=== PATIENT | female | born 1955 | race Caucasian/White ===

== ENCOUNTER → 2022-11-07 15:07 | Outpatient (BNVA) | payer MEDICARE, MEDICAID, SELFPAY | PROVIDERS: PCP Physician Assistant; Visit Provider Psychiatry & Neurology Neurology | DX: R20.0 Anesthesia of skin (principal); R20.2 Paresthesia of skin; R26.9 Unspecified abnormalities of gait and mobility | CPT/HCPCS: 99202 ==

== ENCOUNTER 2022-12-18 12:00 | Outpatient (REF) | payer MEDICARE, MEDICAID, SELFPAY ==
--- NOTE | 2022-12-18 09:00 | EMG_ITS ---
Please see scanned EMG / Nerve Conduction Report. MTDD
== END 2022-12-18 12:01 | disposition home or self-care (01) ==
LOC: HO.NEURO 12:00
PROVIDERS: PCP Physician Assistant; Visit Provider Psychiatry & Neurology Neurology
DX: R20.0 Anesthesia of skin (principal); R20.2 Paresthesia of skin
CPT/HCPCS: 95885; 95911

== ENCOUNTER 2023-02-12 13:51 | Outpatient (AMB) | payer MEDICARE, MEDICAID, SELFPAY ==
[2023-02-12 13:53] VITALS: BP 126/78; PULSE 86; O2SAT 94; BMI 20.1
--- NOTE | 2023-02-12 13:53 | MHC.OFFVIS ---
Intake Vital Signs 02/12/23 13:53 Height 5 ft 7 in Weight 128 lb 4 oz BMI 20.1 BP 126/78 Blood Pressure Location Lt brachial Position Sitting Pulse 86 Pulse Source Pulse Oximeter Pulse Oximetry (%) 94 Oxygen Delivery Method Room Air Intake Visit Reasons: 3m follow up neuropathy-Confirmed Intake Note: Pt presents as a 3 month f/u for neuropathy. 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 Pt reports that she started vitamin B12 supplement. Pt states that her neuropathy, numbness and tingling of feet and hands has improved a little bit, but not a lot. She started cortisone injection for lumbar stenosis and it helps her stand straight and walks better. She gets legs spasm, randomly. 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 Normal EMG of right L4-S1 innervated muscles. [facility] Medical History Alcohol abuse Gait abnormality Heroin addiction Low back pain Lumbar spondylosis Myalgia Numbness and tingling of both legs Shingles Spinal stenosis Family History Father Afib Thyroid condition Brother Cancer Social History Alcohol intake: former Patient Tobacco Use Status: Never used Tobacco Review of Systems Const All systems reviewed & are unremarkable except as noted in HPI and below Physical Exam Vital Signs: Last Vital Signs Pulse 86 02/12/23 13:53 BP 126/78 02/12/23 13:53 Pulse Ox 94 02/12/23 13:53 Oxygen Delivery Method Room Air 02/12/23 13:53 BMI result Body Mass Index 20.1 Const General: cooperative, comfortable and no acute distress Nutritional Appearance: average body habitus Orientation/consciousness: patient oriented x3 Limitations: physical limitations HEENT Head: Yes normal to inspection and Yes normocephalic Eyes Pupils: Equal, round and reactive pupils present Neuro Other: Placido postural and action tremors Hypersthesia in placido feet legs upto hips and distal UE - numbness General: patient oriented x3, tone normal and moves all extremities Cranial nerves: Yes Facial sensation intact/muscles of mastication intact, Yes Equal, round and reactive pupils present, Yes Bilaterally intact EOM present, Yes Nystagmus not present, Yes Normal facial strength present, Yes Midline tongue present and Yes Symmetric palate elevation present Cognition (Neuro): normal cognition Gait exam (Neuro): Other gait observations present (difficulty with tandem, mild off balance) Motor exam (neuro): 5/5 motor strength present throughout and Normal motor muscle tone present throughout Deep tendon reflexes (DTR's): Right triceps reflex intensity grade: 2+, Left triceps reflex intensity grade: 2+, Rt Biceps (C5, C6): 2+, Left biceps reflex intensity grade: 2+, Right brachioradialis reflex intensity grade: 2+, Left brachioradialis reflex intensity grade: 2+, Right patellar reflex intensity grade: 2+, Left patellar reflex intensity grade: 2+, Right ankle reflex intensity grade: 0 and Left ankle reflex intensity grade: 0 Coordination: [id number] test normal Psych Affect: Anxious affect present Assessment & Plan Assessment & Plan (1) Numbness and tingling of both legs: Code(s): R20.0 - Anesthesia of skin; R20.2 - Paresthesia of skin (2) Gait abnormality: Code(s): R26.9 - Unspecified abnormalities of gait and mobility (3) Axonal neuropathy: Code(s): G6. - Other specified polyneuropathies (4) Spinal stenosis: Code(s): M48.00 - Spinal stenosis, site unspecified Plan Will check labs to see any reversible causes of neuropathy. Advised patient to continue follow up with [facility] for lumbar stenosis and cortisone injection. Continue home physical therapy. Start magnesium 400 mg qHS for muslce spasm. Orders: Orders Vitamin B12 and Folate 02/12/23 - Other specified polyneuropathies Comprehensive Met. Panel 02/12/23 - Other specified polyneuropathies TSH reflex Free T4 02/12/23 - Other specified polyneuropathies Complete Blood Count Auto Diff 02/12/23 - Other specified polyneuropathies Erythrocyte Sedimentation Rate 06/28/23 G62.89 - Other specified polyneuropathies TANG Reflex Titer and Pattern 02/12/23 G6.89 - Other specified polyneuropathies Medications: New magnesium oxide 200 mg PO DAILY 30 tabs 1RF 30 days Coding Level of Care Code Est Pt Level 4 (55147) Diagnoses Numbness and tingling of both legs R20.0; R20.2 Gait abnormality R26.9 Axonal neuropathy G62.89 Spinal stenosis M48.00
== END 2023-02-12 14:26 | disposition home or self-care (01) ==
LOC: HO.HSMS 13:51
PROVIDERS: PCP Physician Assistant; Visit Provider Nurse Practitioner Family
DX: R20.0 Anesthesia of skin (principal); R20.2 Paresthesia of skin; R26.9 Unspecified abnormalities of gait and mobility; G62.89 Other specified polyneuropathies; M48.00 Spinal stenosis, site unspecified
CPT/HCPCS: 99214

== ENCOUNTER → 2023-02-12 13:51 | Outpatient (BNVA) | payer MEDICARE, MEDICAID, SELFPAY | PROVIDERS: PCP Physician Assistant; Visit Provider Nurse Practitioner Family | DX: R20.0 Anesthesia of skin (principal); R20.2 Paresthesia of skin; R26.9 Unspecified abnormalities of gait and mobility; G62.89 Other specified polyneuropathies; M48.00 Spinal stenosis, site unspecified | CPT/HCPCS: 99212 ==

== ENCOUNTER 2023-03-13 10:30 | Outpatient (REF) | payer MEDICARE, MEDICAID, SELFPAY ==
[2023-03-13 10:49] LABS: MANUAL DIFF FLAG NO
[2023-03-13 10:59] LABS: Basophils Absolute Auto 0.1 X10*3/uL (0.0-0.2); Basophils Percent Auto 1.8 % (0-2); Eosinophils Absolute Auto 0.3 X10*3/uL (0.0-0.4); Eosinophils Percent Auto 3.9 % (0-4); Hematocrit 38.3 % (37.0-47.0); Hemoglobin 12.3 g/dl (12.0-16.0); Imm Gran Abs Auto 0.02 X10*3/uL (0.00-0.03); Imm Gran Pct Auto 0.3 % (0.0-0.4); Lymphocytes Absolute Auto 2.5 X10*3/uL (1.2-4.9); Lymphocytes Percent Auto 33.5 % (20-40); Mean Corpuscular HGB Conc 32.1 g/dl (31.0-35.0); Mean Corpuscular Hemoglobin 27.7 pg (27.0-33.0); Mean Corpuscular Volume 86.3 fL (80.0-98.0); Mean Platelet Volume 10.5 fL (9.4-12.3); Monocytes Absolute Auto 0.4 X10*3/uL (0.1-1.2); Monocytes Percent Auto 5.7 % (2-11); Neutrophils Percent Auto 54.8 % (45-73); Platelet Count 206 X10*3/uL (160-400); Red Blood Count 4.44 X10*6/uL (4.20-5.50); White Blood Count 7.4 X10*3/uL (4.8-10.8)
[2023-03-13 11:35] LABS: Alanine Aminotransferase 7 U/L (0-31); Albumin Level 3.8 g/dL (3.5-5.0); Alkaline Phosphatase 76 U/L (39-117); Anion Gap 15 (12-20); Aspartate Amino Transferase 13 U/L (5-31); Bilirubin Total 0.4 mg/dL (0.0-1.0); Blood Urea Nitrogen 22 mg/dL (9-16); Calcium 9.6 mg/dL (8.4-10.2); Carbon Dioxide 27 mmol/L (22-29); Chloride 101 mmol/L (96-108); Estimated Glomerular Filt Rate > 60; Glucose Random 90 mg/dL (60-115); Potassium 4.2 mmol/L (3.3-5.1); Sodium 139 mmol/L (135-145); Total Protein 6.9 g/dL (6.5-8.0)
[2023-03-13 11:50] LABS: Erythrocyte Sedimentation Rate 13 MM/HR (0-20)
[2023-03-13 11:51] LABS: TSH reflex Free T4 1.53 uIU/mL (0.32-4.0)
[2023-03-13 11:56] LABS: Folate 3.2 ng/mL (> or = 4.0); Vitamin B12 1437 pg/mL (200-900)
[2023-03-20 14:43] LABS: Anti Nuclear Antibody Screen NEGATIVE (NEGATIVE)
== END 2023-03-13 10:31 | disposition home or self-care (01) ==
LOC: HO.LAB 10:30
PROVIDERS: Visit Provider Nurse Practitioner Family
DX: G62.89 Other specified polyneuropathies (principal); R53.83 Other fatigue
CPT/HCPCS: 36415; 80053; 82607; 82746; 84443; 85025; 85652; 86038

== ENCOUNTER 2023-05-08 12:52 | Outpatient (AMB) | payer MEDICARE, SELFPAY ==
--- NOTE | 2023-05-08 13:03 | A.OFFVIS_ITS ---
Intake Vital Signs 05/08/23 13:05 Height 5 ft 7 in Weight 129 lb BMI 20.2 BP 118/82 Blood Pressure Location Lt brachial Position Sitting Pulse 83 Pulse Source Pulse Oximeter Pulse Oximetry (%) 93 Oxygen Delivery Method Room Air Intake Visit Reasons: 2m f/u neuropathy- Confirmed Intake Note: Patient presents for 2 month neuropathy. Patient states Berenice got some question for her Allergies No Known Allergies Allergy (Verified 05/08/23 13:05) HPI HPI Comments History of Present Illness Details 68 y/o female with h/o low back pain, maurilio mbar spondylosis, spinal stenosis, h/o alcohol (quit more than 1 year) and,heroin abuse ( still uses) comes for follow up of neuropathy. Pt states that her neuropathy, numbness and tingling of feet and hands has improved a little bit, but not a lot. She also reports heel pain and try to lift her legs when she sleep. 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 She is having cortisone injection for lumbar stenosis and it helps her stand straight and walks better. The lab result was reviewed. B12 level was >1400 and folate was 3.2 [facility] History Alcohol abuse Gait abnormality Heroin addiction Low back pain Lumbar spondylosis Myalgia Numbness and tingling of both legs Shingles Spinal stenosis Family History Father Afib Thyroid condition Brother Cancer Social History Alcohol intake: former Patient Tobacco Use Status: Never used Tobacco Review of Systems Const All systems reviewed & are unremarkable except as noted in HPI and below Physical Exam Vital Signs: Last Vital Signs Pulse 83 05/08/23 13:05 BP 118/82 05/08/23 13:05 Pulse Ox 93 05/08/23 13:05 Oxygen Delivery Method Room Air 05/08/23 13:05 BMI result Body Mass Index 20.2 Const General: cooperative, comfortable and no acute distress Nutritional Appearance: average body habitus Orientation/consciousness: patient oriented x3 Limitations: physical limitations HEENT Head: Yes normal to inspection and Yes normocephalic Eyes Pupils: Equal, round and reactive pupils present Neuro Other: Heaven postural and action tremors Hypersthesia in heaven feet legs upto hips and distal UE - numbness General: patient oriented x3, tone normal and moves all extremities Cranial nerves: Yes Facial sensation intact/muscles of mastication intact, Yes Equal, round and reactive pupils present, Yes Bilaterally intact EOM present, Yes Nystagmus not present, Yes Normal facial strength present, Yes Midline tongue present and Yes Symmetric palate elevation present Cognition (Neuro): normal cognition Gait exam (Neuro): Other gait observations present (difficulty with tandem, mild off balance) Motor exam (neuro): 5/5 motor strength present throughout and Normal motor muscle tone present throughout Deep tendon reflexes (DTR's): Right triceps reflex intensity grade: 2+, Left triceps reflex intensity grade: 2+, Rt Biceps (C5, C6): 2+, Left biceps reflex intensity grade: 2+, Right brachioradialis reflex intensity grade: 2+, Left brachioradialis reflex intensity grade: 2+, Right patellar reflex intensity grade: 2+, Left patellar reflex intensity grade: 2+, Right ankle reflex intensity grade: 0 and Left ankle reflex intensity grade: 0 Coordination: [id number] test normal Psych Affect: Anxious affect present Assessment & Plan Assessment & Plan (1) Numbness and tingling of both legs: Code(s): R20.0 - Anesthesia of skin; R20.2 - Paresthesia of skin (2) Gait abnormality: Code(s): R26.9 - Unspecified abnormalities of gait and mobility (3) Axonal neuropathy: Code(s): G62.89 - Other specified polyneuropathies (4) Spinal stenosis: Code(s): M48.00 - Spinal stenosis, site unspecified Plan Advised patient to stop taking vitamin B12. Start folic acid 1 mg daily. Advised patient to continue follow up with [facility] for lumbar stenosis and cortisone injection. Continue home physical therapy. Continue take magnesium 400 mg qHS for muscle spasm. Advised patient to try heel pillow to prevent heel pressure when she sleep. Medications: New folic acid 1 mg PO DAILY 30 days 30 tabs 2RF E53.8 - Deficiency of other specified B group vitamins Coding Level of Care Code Est Pt Level 4 (15753) Diagnoses Numbness and tingling of both legs R20.0; R20.2 Gait abnormality R26.9 Axonal neuropathy G62.89 Spinal stenosis M48.00
[2023-05-08 13:05] VITALS: BP 118/82; PULSE 83; O2SAT 93; BMI 20.2
== END 2023-05-08 13:25 | disposition home or self-care (01) ==
PROVIDERS: PCP Physician Assistant; Visit Provider Nurse Practitioner Family
DX: R20.0 Anesthesia of skin (principal); R20.2 Paresthesia of skin; R26.9 Unspecified abnormalities of gait and mobility; G62.89 Other specified polyneuropathies; M48.00 Spinal stenosis, site unspecified
CPT/HCPCS: 99214

== ENCOUNTER → 2023-05-08 12:52 | Outpatient (BNVA) | payer MEDICARE, SELFPAY | PROVIDERS: PCP Physician Assistant; Visit Provider Nurse Practitioner Family | DX: R20.0 Anesthesia of skin (principal); R20.2 Paresthesia of skin; G62.89 Other specified polyneuropathies; R26.9 Unspecified abnormalities of gait and mobility; M48.00 Spinal stenosis, site unspecified | CPT/HCPCS: 99212 ==

== ENCOUNTER 2024-07-22 14:13 | Outpatient (AMB) | payer MEDICARE, SELFPAY ==
--- NOTE | 2024-07-22 14:41 | MHC.OFFVIS ---
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 Accompanied by: Self / Same As Patient Allergies No Known Allergies Allergy (Verified 07/22/24 14:44) Medication List - Last Reconciled 07/22/24 by TALA Woodard alendronate 70 mg PO QWEEK ascorbate calcium (vitamin C) 500 mg PO DAILY [Biotin 1,000 mg PO DAILY] cholecalciferol (vitamin D3) 50 mcg PO DAILY folic acid 1 mg PO DAILY 30 days magnesium oxide 800 mg PO DAILY pamidronate 30 mg IV DAILY HPI Comments Details: 69-y/o female with for Placido hand and BLE nueropathy in setting of osteoporosis, low back pain , lumbar spondylosis, spinal stenosis, h/o alcohol abuse (quit in 2020), opioid dependence (inhales 1-2 small doses of herion per day- no h/o injections) comes for evaluation of neuropathy. Patient was last seen by our former colleague, Celestine Nichols NP. She continues to have BLE tingling and decreased sensation from her waist through her feet. Very occasionally will feel a more intense tingling pain. She feels like she is walking on something hard. Always wears shoes or a good tread so she does not fall. She can be off-balance when her eyes are closed, such as showering or changing clothes. She denies weakness- states she is able to do her housework and care for her cats. Sometimes asks for help carrying her laundry basket down the stairs. She has tingling sensation in bilateral hands as well, not as bad as her legs. She is compliant with the folic acid 1 mg q.d., her last folic acid level was within normal limits. She does note that she does not eat very well overall. December 2022, BLE EMG/NCS showed bilateral moderately severe axonal sensory neuropathy. Laboratory Results from [facility] ? Latest Ref Rng & Units 04/26/2024 White Blood Cell Count 4.8 - 10.8 x10-3/uL 7.2 RBC 3.8 - 4.8 x10-6/uL 4.4 Hemoglobin 11.5 - 16.0 g/dL 12.3 Hematocrit 35 - 47 % 39.1 MCV 79 - 98 fL 89.9 MEAN CORPUSCULAR HEMOGLOBIN 27 - 32 pg 28.3 MCHC 32 - 37 g/dL 31.5(L) RED CELL DISTRIBUTION WIDTH 11 - 15 % 14.4 Platelet Count 130 - 400 x10-3/uL 304 MPV 7 - 11 fL 10.7 NRBC % AUTO <1 % 0.0 NEUTROPHILS % 63.8 LYMPHOCYTES % 25.8 MONO % % 6.2 EOSINOPHILS % 1.7 BASO % % 2.4 IMMATURE GRANULOCYTES % % 0.1 NRBC # AUTO <0.1 x10-3/uL 0.00 NEUT # 1.5 - 7.0 x10-3/uL 4.61 LYMPH # 1 - 5.0 x10-3/uL 1.86 MONO # 0.2 - 1.0 x10-3/uL 0.45 EOS # 0 - 0.5 x10-3/uL 0.12 BASO # 0 - 0.2 x10-3/uL 0.17 IMMATURE GRANULOCYTES # 0 - 0.03 x10-3/uL 0.01 GLUCOSE, PLASMA 70 - 100 mg/dL 100 Blood Urea Nitrogen 5 - 25 mg/dL 15 creatinine 0.5 - 1.1 mg/dL 0.89 GLOMERULAR FILTRATION RATE >60 71 NA (WB) 135 - 145 mEq/L 137 K 3.5 - 5.5 mmol/L 5.3 Chloride 96 - 110 mmol/L 102 CARBON DIOXIDE 21 - 32 mmol/L 32 ANION GAP 3 - 11 3 CALCIUM 8.5 - 10.5 mg/dL 9.6 PROTEIN, TOTAL 6.0 - 8.0 G/dL 7.3 Albumin 3.2 - 5.0 G/dL 4.0 Bilirubin, total 0.0 - 1.4 mg/dL 0.4 AST (SGOT) 10 - 42 U/L 17 ALT (SGPT) 10 - 60 U/L 17 Alk Phos 42 - 121 U/L 75 Cholesterol 0 - 200 mg/dL 236(H) HDL >40 mg/dL 92 TC-HDLC RATIO 0 - 4.4 mg/dL 2.6 TRIGLYCERIDES 0 - 150 mg/dL 109 LDL 0 - 100 mg/dL 123(H) IRON BINDING CAPACITY 250 - 450 ug/dL 357 IRON, TOTAL 40 - 150 ug/dL 67 % FE SATURATION 15 - 50 % 19 HbA1C <6.5 % 5.3 ESTIMATED AVERAGE GLUCOSE mg/dL 105 TSH 0.40 - 4.00 uIU/ml 1.78 VITAMIN D, 25-HYDROXY 30 - 80 ng/mL 38 MAGNESIUM 1.9 - 2.6 mg/dL 2.5 FERRITIN 8 - 252 ng/mL 109 VITAMIN B12 250 - 900 pg/mL 1073(H) RBC FOLATE 2.8 - 17.0 ng/ml > 20.0(H) Initial HPI from 11/07/[address] Gavi Antunez: She reports numbness in toes that started in 2019 and has progressed to her thighs. It is persistent and has tingling in her feet and hands. She reports dry skin. In 2012 she also had skin rash in right LE and diagnosed with shingles. she had severe pain at that time when she was drinking heavily 1 year ago she had multiple falls . The falls stopped when she stopped drinking. she has chronic back pain, neck tightness, but denies shooting pains from back or neck. she has mild off balance . she is scared of falling.Her diet is poor due to poor appetite. [facility] Medical History Gait abnormality Numbness and tingling of both legs Shingles Myalgia Alcohol abuse Heroin addiction Spinal stenosis Lumbar spondylosis Low back pain Family History Father Afib Thyroid condition Brother Cancer Social History Alcohol intake: former Patient Tobacco Use Status: Never used Tobacco Physical Exam Vital Signs: Last Vital Signs Pulse 69 07/22/24 14:43 BP 90/60 07/22/24 14:43 Pulse Ox 98 07/22/24 14:43 Oxygen Delivery Method Room Air 07/22/24 14:43 BMI result Body Mass Index 18.0 Const General: cooperative and no acute distress Orientation/consciousness: patient oriented x3 Resp Effort & Inspection: normal respiratory effort and able to speak in complete sentences Neuro General: patient oriented x3 and deep tendon reflexes 2+ bilaterally Cranial nerves: Yes CN's II-XII intact bilaterally Cognition (Neuro): normal cognition Gait exam (Neuro): Normal gait present Motor exam (neuro): 5/5 motor strength present throughout Psych Appearance: grossly normal Mental Status: mental status grossly normal Speech and movement: Normal speech and movement present Affect: normal affect Attitude: cooperative Assessment & Plan Assessment & Plan (1) Axonal neuropathy: Comment: December 2022, BLE EMG/NCS showed bilateral moderately severe axonal sensory neuropathy. Code(s): G62.89 - Other specified polyneuropathies Category: Medical (2) Folic acid deficiency: Code(s): E53.8 - Deficiency of other specified B group vitamins Category: Medical (3) Numbness and tingling of both legs: Code(s): R20.0 - Anesthesia of skin; R20.2 - Paresthesia of skin Category: Medical Plan Reviewed previous labs and EMG workup with patient. Continue folic acid 1 mg q.d. We will check additional labs including nutritional panel, serum and urine protein electrophoresis to round out axonal sensory neuropathy workup. Trial low-dose gabapentin 100 mg-300 mg q.h.s. advised to not use with opioid use (patient uses this in the mornings) Discuss that if patient would like, we could help refer her to an opioid use disorder clinic, she will consider this. Pt to follow-up in 6 months or sooner prn. Orders: Orders Protein Electrophoresis 24HrUr Today TALA Woodard E53.8 - Deficiency of other specified B group vitamins, G62.89 - Other specified polyneuropathies, M79.10 - Myalgia, unspecified site, R20.0 - Anesthesia of skin, R20.2 - Paresthesia of skin HIV Ab/Ag Today TALA Woodard E53.8 - Deficiency of other specified B group vitamins, G62.89 - Other specified polyneuropathies, M79.10 - Myalgia, unspecified site, R20.0 - Anesthesia of skin, R20.2 - Paresthesia of skin Vitamin B3 (Niacin) Today TALA Woodard E53.8 - Deficiency of other specified B group vitamins, G62.89 - Other specified polyneuropathies, M79.10 - Myalgia, unspecified site, R20.0 - Anesthesia of skin, R20.2 - Paresthesia of skin Vitamin B5 (Pantothenic Acid) Today TALA Woodard E53.8 - Deficiency of other specified B group vitamins, G6. - Other specified polyneuropathies, M79.10 - Myalgia, unspecified site, R20.0 - Anesthesia of skin, R20.2 - Paresthesia of skin Vitamin C Today TALA Woodard E53.8 - Deficiency of other specified B group vitamins, - Other specified polyneuropathies, M79.10 - Myalgia, unspecified site, R20.0 - Anesthesia of skin, R20.2 - Paresthesia of skin Protein Electrophoresis, Serum Today TALA Woodard E53.8 - Deficiency of other specified B group vitamins, . - Other specified polyneuropathies, M79.10 - Myalgia, unspecified site, R20.0 - Anesthesia of skin, R20.2 - Paresthesia of skin Vitamin B1 Today TALA Woodard E53.8 - Deficiency of other specified B group vitamins, . - Other specified polyneuropathies, M79.10 - Myalgia, unspecified site, R20.0 - Anesthesia of skin, R20.2 - Paresthesia of skin Vitamin B6 Today TALA Woodard E53.8 - Deficiency of other specified B group vitamins, . - Other specified polyneuropathies, M79.10 - Myalgia, unspecified site, R20.0 - Anesthesia of skin, R20.2 - Paresthesia of skin Zinc Today TALA Woodard E53.8 - Deficiency of other specified B group vitamins, - Other specified polyneuropathies, M79.10 - Myalgia, unspecified site, R20.0 - Anesthesia of skin, R20.2 - Paresthesia of skin Medications: New gabapentin 100 - 300 mg (1 - 3 x 100 mg) PO BEDTIME 90 caps 3RF 30 days TALA Woodard G6 - Other specified polyneuropathies Changed From magnesium oxide 200 mg PO DAILY 30 days 30 tabs 1RF To magnesium oxide 800 mg PO DAILY Celestine Nichols CNP Coding Level of Care Code Est Pt Level 4 (96245) Diagnoses Axonal neuropathy G62.89 Folic acid deficiency E53.8 Numbness and tingling of both legs R20.0; R20.2
[2024-07-22 14:43] VITALS: BP 90/60; PULSE 69; O2SAT 98; BMI 18.0
== END 2024-07-22 15:51 | disposition home or self-care (01) ==
PROVIDERS: PCP Physician Assistant; Visit Provider Nurse Practitioner Family
DX: G62.89 Other specified polyneuropathies (principal); E53.8 Deficiency of other specified B group vitamins; R20.0 Anesthesia of skin; R20.2 Paresthesia of skin
CPT/HCPCS: 99214

== ENCOUNTER → 2024-07-22 14:13 | Outpatient (BNVA) | payer MEDICARE, SELFPAY | PROVIDERS: PCP Physician Assistant; Visit Provider Nurse Practitioner Family | DX: G62.89 Other specified polyneuropathies (principal); M79.10 Myalgia, unspecified site; M81.0 Age-related osteoporosis without current pathological fracture; E53.8 Deficiency of other specified B group vitamins; R20.0 Anesthesia of skin; R20.2 Paresthesia of skin | CPT/HCPCS: 99212 ==

== ENCOUNTER 2025-01-27 14:19 | Outpatient (AMB) | payer MEDICARE, SELFPAY ==
[2025-01-27 14:20] VITALS: BP 130/82; PULSE 82; O2SAT 95; BMI 16.6
--- NOTE | 2025-01-27 14:20 | A.OFFVIS_ITS ---
Vital Signs 3 01/27/25 14:20 Height 5 ft 5 in Weight 100 lb BMI 16.6 BP 130/82 Blood Pressure Location Rt brachial Position Sitting Pulse 82 Pulse Source Pulse Oximeter Pulse Oximetry (%) 95 Oxygen Delivery Method Room Air Intake Visit Reasons: Follow up 6mo Intake Note: Patient here for a follow-up. Hair Baler Required: No Accompanied by: Self / Same As Patient Allergies No Known Allergies Allergy (Verified 01/27/25 14:24) Medication List - Last Reconciled 01/27/25 by TALA Woodard alendronate 70 mg PO QWEEK [Biotin 1,000 mg PO DAILY] calcium pantothenate 250 mg PO BID 90 days cholecalciferol (vitamin D3) 50 mcg PO DAILY folic acid 1 mg PO DAILY 90 days gabapentin 100 - 300 mg (1 - 3 x 100 mg) PO BEDTIME 30 days magnesium oxide 800 mg PO DAILY niacin 50 mg PO BID 90 days pamidronate 30 mg IV DAILY pyridoxine (vitamin B6) 50 mg PO BID 90 days Do you need a note to return to daycare/school/sports/work: No HPI Comments Details: 70-y/o female w ith for Placido hand and BLE nueropathy in setting of osteoporosis, low back pain , lumbar spondylosis, spinal stenosis, h/o alcohol abuse (quit in 2020), opioid dependence (inhales 1-2 small doses of herion per day- no h/o injections) comes for evaluation of neuropathy. Patient reports she is feeling better since the last visit, and starting gabapentin. Patient reports she is having less tingling sensation since starting gabapentin. Initially she started gabapentin 100 mg q.h.s. but that was not helpful, and increase to 200 mg q.h.s. which has been helpful. Her neuropathy symptoms include- BLE tingling and decreased sensation from her waist through her feet. Very occasionally will feel a more intense tingling pain. Bilateral hand tingling, not as prominent as in her legs. She feels like she is walking on something hard. Always wears shoes or a good tread so she does not fall. She can be off-balance when her eyes are closed, such as showering or changing clothes. She denies focal weakness but feels generally weaker. She is able to do her housework and care for her cats. Sometimes asks for help carrying her laundry basket down the stairs. She states she is compliant with her folic acid and vitamin C supplements. 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 She states she is using the magnesium as needed She denies taking any zinc specific supplements. She does note that she does not eat very well overall. Interval labs, from [place]: Previous workup: December 2022, BLE EMG/NCS showed bilateral moderately severe axonal sensory neuropathy. Laboratory Results from [place] ? Latest Ref Rng & Units 04/26/2024 White Blood Cell Count 4.8 - 10.8 x10-3/uL 7.2 RBC 3.8 - 4.8 x10-6/uL 4.4 Hemoglobin 11.5 - 16.0 g/dL 12.3 Hematocrit 35 - 47 % 39.1 MCV 79 - 98 fL 89.9 MEAN CORPUSCULAR HEMOGLOBIN 27 - 32 pg 28.3 MCHC 32 - 37 g/dL 31.5(L) RED CELL DISTRIBUTION WIDTH 11 - 15 % 14.4 Platelet Count 130 - 400 x10-3/uL 304 MPV 7 - 11 fL 10.7 NRBC % AUTO <1 % 0.0 NEUTROPHILS % 63.8 LYMPHOCYTES % 25.8 MONO % % 6.2 EOSINOPHILS % 1.7 BASO % % 2.4 IMMATURE GRANULOCYTES % % 0.1 NRBC # AUTO <0.1 x10-3/uL 0.00 NEUT # 1.5 - 7.0 x10-3/uL 4.61 LYMPH # 1 - 5.0 x10-3/uL 1.86 MONO # 0.2 - 1.0 x10-3/uL 0.45 EOS # 0 - 0.5 x10-3/uL 0.12 BASO # 0 - 0.2 x10-3/uL 0.17 IMMATURE GRANULOCYTES # 0 - 0.03 x10-3/uL 0.01 GLUCOSE, PLASMA 70 - 100 mg/dL 100 Blood Urea Nitrogen 5 - 25 mg/dL 15 creatinine 0.5 - 1.1 mg/dL 0.89 GLOMERULAR FILTRATION RATE >60 71 NA (WB) 135 - 145 mEq/L 137 K 3.5 - 5.5 mmol/L 5.3 Chloride 96 - 110 mmol/L 102 CARBON DIOXIDE 21 - 32 mmol/L 32 ANION GAP 3 - 11 3 CALCIUM 8.5 - 10.5 mg/dL 9.6 PROTEIN, TOTAL 6.0 - 8.0 G/dL 7.3 Albumin 3.2 - 5.0 G/dL 4.0 Bilirubin, total 0.0 - 1.4 mg/dL 0.4 AST (SGOT) 10 - 42 U/L 17 ALT (SGPT) 10 - 60 U/L 17 Alk Phos 42 - 121 U/L 75 Cholesterol 0 - 200 mg/dL 236(H) HDL >40 mg/dL 92 TC-HDLC RATIO 0 - 4.4 mg/dL 2.6 TRIGLYCERIDES 0 - 150 mg/dL 109 LDL 0 - 100 mg/dL 123(H) IRON BINDING CAPACITY 250 - 450 ug/dL 357 IRON, TOTAL 40 - 150 ug/dL 67 % FE SATURATION 15 - 50 % 19 HbA1C <6.5 % 5.3 ESTIMATED AVERAGE GLUCOSE mg/dL 105 TSH 0.40 - 4.00 uIU/ml 1.78 VITAMIN D, 25-HYDROXY 30 - 80 ng/mL 38 MAGNESIUM 1.9 - 2.6 mg/dL 2.5 FERRITIN 8 - 252 ng/mL 109 VITAMIN B12 250 - 900 pg/mL 1073(H) RBC FOLATE 2.8 - 17.0 ng/ml > 20.0(H) Initial HPI from 11/07/[address] Gavi Antunez: She reports numbness in toes that started in 2019 and has progressed to her thighs. It is persistent and has tingling in her feet and hands. She reports dry skin. In 2012 she also had skin rash in right LE and diagnosed with shingles. she had severe pain at that time when she was drinking heavily 1 year ago she had multiple falls . The falls stopped when she stopped drinking. she has chronic back pain, neck tightness, but denies shooting pains from back or neck. she has mild off balance . she is scared of falling.Her diet is poor due to poor appetite. [facility] Medical History Gait abnormality Numbness and tingling of both legs Shingles Myalgia Alcohol abuse Heroin addiction Spinal stenosis Lumbar spondylosis Low back pain Family History Father Afib Thyroid condition Brother Cancer Social History Alcohol intake: former Patient Tobacco Use Status: Never used Tobacco Physical Exam Vital Signs: Last Vital Signs Pulse 82 01/27/25 14:20 BP 130/82 01/27/25 14:20 Pulse Ox 95 01/27/25 14:20 Oxygen Delivery Method Room Air 01/27/25 14:20 BMI result Body Mass Index 16.6 Const General: cooperative and no acute distress Orientation/consciousness: patient oriented x3 Resp Effort & Inspection: normal respiratory effort and able to speak in complete sentences Neuro General: patient oriented x3 and deep tendon reflexes 2+ bilaterally Cranial nerves: Yes CN's II-XII intact bilaterally Cognition (Neuro): normal cognition Gait exam (Neuro): Normal gait present Motor exam (neuro): 5/5 motor strength present throughout Psych Appearance: grossly normal Mental Status: mental status grossly normal Speech and movement: Normal speech and movement present Affect: normal affect Attitude: cooperative Assessment & Plan Assessment & Plan (1) Vitamin B deficiency, unspecified: Code(s): E53.9 - Vitamin B deficiency, unspecified Category: Medical (2) Axonal neuropathy: Comment: December 2022, BLE EMG/NCS showed bilateral moderately severe axonal sensory neuropathy. Code(s): G62.89 - Other specified polyneuropathies Category: Medical (3) Folic acid deficiency: Code(s): E53.8 - Deficiency of other specified B group vitamins Category: Medical (4) Numbness and tingling of both legs: Code(s): R20.0 - Anesthesia of skin; R20.2 - Paresthesia of skin Category: Medical Plan Reviewed interval lab results to round out axonal sensory neuropathy workup: * There is normal serum protein electrophoresis, [id number] deficiencies, mildly elevated zinc level, mildly elevated vitamin C level. * Start calcium pantothenate 250 mg b.i.d., vitamin B6 50 mg b.i.d., niacin 50 mg b.i.d. supplements. * Continue folic acid 1 mg q.day supplement. * May continue magnesium q.h.s. PRN * Hold vitamin-C supplement * Recheck nonfasting labs in 3 months-lab slips printed and handed to patient. * Patient verbalizes that she will try to eat more regularly. Continue low-dose gabapentin 100 mg-300 mg q.h.s.- do not use with opioid use (patient uses this in the mornings). Previously discussed that if patient would like, we could help refer her to an opioid use disorder clinic, she will consider this. Pt to follow-up in 6 months or sooner prn. Orders: Orders 2 Vitamin B12 3 Months D64.9 - Anemia, unspecified, E53.8 - Deficiency of other specified B group vitamins, E53.9 - Vitamin B deficiency, unspecified, G62.89 - Other specified polyneuropathies Vitamin B2 (Riboflavin) 3 Months D64.9 - Anemia, unspecified, E53.8 - Deficiency of other specified B group vitamins, E53.9 - Vitamin B deficiency, unspecified, G62.89 - Other specified polyneuropathies Vitamin B3 (Niacin) 3 Months D64.9 - Anemia, unspecified, E53.8 - Deficiency of other specified B group vitamins, E53.9 - Vitamin B deficiency, unspecified, G62.89 - Other specified polyneuropathies Vitamin B6 3 Months D64.9 - Anemia, unspecified, E53.8 - Deficiency of other specified B group vitamins, E53.9 - Vitamin B deficiency, unspecified, G62.89 - Other specified polyneuropathies Vitamin D 25-OH Total 3 Months D64.9 - Anemia, unspecified, E53.8 - Deficiency of other specified B group vitamins, E53.9 - Vitamin B deficiency, unspecified, G62.89 - Other specified polyneuropathies Complete Blood Count Auto Diff 3 Months D64.9 - Anemia, unspecified, E53.8 - Deficiency of other specified B group vitamins, E53.9 - Vitamin B deficiency, unspecified, G62.89 - Other specified polyneuropathies Comprehensive Met. Panel 3 Months D64.9 - Anemia, unspecified, E53.8 - Deficiency of other specified B group vitamins, E53.9 - Vitamin B deficiency, unspecified, G62.89 - Other specified polyneuropathies Homocysteine 3 Months D64.9 - Anemia, unspecified, E53.8 - Deficiency of other specified B group vitamins, E53.9 - Vitamin B deficiency, unspecified, G62.89 - Other specified polyneuropathies Zinc 3 Months D64.9 - Anemia, unspecified, E53.8 - Deficiency of other specified B group vitamins, E53.9 - Vitamin B deficiency, unspecified, G62.89 - Other specified polyneuropathies Vitamin B1 3 Months D64.9 - Anemia, unspecified, E53.8 - Deficiency of other specified B group vitamins, E53.9 - Vitamin B deficiency, unspecified, G62.89 - Other specified polyneuropathies Vitamin B5 (Pantothenic Acid) 3 Months D64.9 - Anemia, unspecified, E53.8 - Deficiency of other specified B group vitamins, E53.9 - Vitamin B deficiency, unspecified, G62.89 - Other specified polyneuropathies Vitamin C 3 Months D64.9 - Anemia, unspecified, E53.8 - Deficiency of other specified B group vitamins, E53.9 - Vitamin B deficiency, unspecified, G62.89 - Other specified polyneuropathies Folate 3 Months D64.9 - Anemia, unspecified, E53.8 - Deficiency of other specified B group vitamins, E53.9 - Vitamin B deficiency, unspecified, G62.89 - Other specified polyneuropathies Copper, serum 3 Months D64.9 - Anemia, unspecified, E53.8 - Deficiency of other specified B group vitamins, E53.9 - Vitamin B deficiency, unspecified, G62.89 - Other specified polyneuropathies Methylmalonic Acid 3 Months D64.9 - Anemia, unspecified, E53.8 - Deficiency of other specified B group vitamins, E53.9 - Vitamin B deficiency, unspecified, G62.89 - Other specified polyneuropathies Medications: New 2 calcium pantothenate 250 mg PO BID 90 days 180 caps 1RF pyridoxine (vitamin B6) 50 mg PO BID 90 days 180 tabs 1RF niacin 50 mg PO BID 90 days 180 tabs 1RF Changed 2 From folic acid 1 mg PO DAILY 30 days 30 tabs 2RF E53.8 - Deficiency of other specified B group vitamins To folic acid 1 mg PO DAILY 90 days 90 tabs 1RF E53.8 - Deficiency of other specified B group vitamins Coding Level of Care Code Est Pt Level 4 (00587) Diagnoses Vitamin B deficiency, unspecified E53.9 Axonal neuropathy G6.89 Folic acid deficiency E53.8 Numbness and tingling of both legs R20.0; R20.2
--- OUTSIDE RECORDS SUMMARY | 2025-01-27 16:52 | XMS_ITS | Clinical Summary ---
Author Organization [address] Address [address] [place] [phone] Phone Care Team Providers Care Insurance Licensing Supervisor Name Role Phone Lizandro Shankar Primary Care Provider + Medications alendronate (FOSAMAX) 70 mg tabletIndications :Age-related osteoporosis without current pathological fracture TAKE 1 TABLET BY MOUTH ONE TIME PER WEEK 12 tablet 1 12/08/2024 Active Surgical History Surgery Date Site/Laterality Comments OTHER SURGICAL HISTORY PROCEDURE: [place] DRG LYMPH NODE ABSC/LYMPHADENITIS SMPL; COMMENT: left neck due to cat scratch fever age 15 HAND SURGERY Right PROCEDURE: HISTORICAL HAND SURGERY; COMMENT: right ring finger trauma s/p repair age 18 Medical History Medical History Date Comments Opiate dependence ([facility]/HCC V24, CMS/HCC V28) DX:Opiate dependence ([facility]) History of alcohol abuse DX:Hist ory of alcohol abuse Osteoporosis 04/2023 DX:Osteoporosis Family History Medical History Relation Name Comments Dementia Father Lung cancer Father Relation Name Status Comments Father (Age 83) Mother (Age 81) says she h ad some sort of blood disease or disorder Social History Tobacco Use Types Packs/Day Years Used Date Smoking Tobacco: Never Smokeless Tobacco: Never Alcohol Use Standard Drinks/Week Comments Yes 0 (1 standard drink = 0.6 oz pur e alcohol) Comments Unknown Sex and Gender Information Value Date Recorded Sex Assigned at Not on file Legal Sex Female 9:10 PM EST Gender Identity Not on file Sexual Orientation Not on file Obstetrics History Last Filed Vital Signs Vital Sign Reading Time Taken Comments Blood Pressure 120/72 04/26/2024 9:58 AM EDT Sitting L Arm Pulse 71 04/26/2024 9:58 AM EDT Temperature - - Respiratory Rate - - Oxygen Saturation - - Inhaled Oxygen Concentration - - Weight 52.3 kg (115 lb 3.2 oz) 04/26/2024 9:58 AM EDT Height 165.1 cm (5' 5 ) 04/26/2024 9:58 AM EDT Body Mass Index 19.17 04/26/2024 9:58 AM EDT Plan of Treatment Upcoming Encounters Date Type Department Care Team (Late st Contact Info) Description 04/27/2025 10:00 AM EDT Office Visit Internal Medicine - [place] [address] [place] [phone] Lizandro Shankar PA [address] [place] [address] Health Maintenance Due Date Last Done Comments Breast Cancer Screening 1955 Hepatitis A Vaccines (1 of 2 - Risk 2-dose series) 01/07/1976 Colorectal Cancer Screening: Colonoscopy 09/12/2023 Depression Screening 09/12/2023 Falls Risk Assessment 09/12/2023 Hepatitis C Screening 09/12/2023 Medicare Annual Wellness Visit 09/12/2023 Social Influencers of Health Screening 09/12/2023 COVID-19 Vaccine ( season) 2024 04/17/2024, 07/16/2023, 09/05/2021, Additional history exists Cholesterol Screening (Lipid Panel) 04/26/2029 04/26/2024 Osteoporosis Screening (Bone Density Screening) 05/07/2033 05/07/2023 DTaP,Tdap,and Td Vaccines (2 - Td or Tdap) 07/30/2033 07/30/2023 Pneumococcal Vaccine: 50+ Years Completed 02/14/2023 RSV Immunization Adult Patients Completed 07/16/2023 Zoster Vaccines Completed 11/05/2023, 02/17, 02/14/2023 Influenza Vaccine Completed 04/17/2024, 07/16/2023 HIB Vaccines Aged Out No longer eligi ble based on patient's age to complete this topic HPV Vaccines Aged Out No longer eligi ble based on patient's age to complete this topic Hepatitis B Vaccines Aged Out No long er eligible based on patient's age to complete this topic IPV Vaccines Aged Out No longer eligi ble based on patient's age to complete this topic MMR Vaccines Aged Out No longer eligi ble based on patient's age to complete this topic Meningococcal ACWY Vaccine Aged Out N o longer eligible based on patient's age to complete this topic Meningococcal B Vaccine Aged Out No l onger eligible based on patient's age to complete this topic RSV Immunization Patients Under 20 months Aged Out No longer eligible based on patient's age to complete this topic Varicella Vaccines Aged Out No longer eligible based on patient's age to complete this topic Procedures Procedure Name Priority Date/Time Associated Diagnosis Comments [facility] DEXA AXIAL SKELETON Routine 05/07/2023 11:28 AM EDT Age-related osteoporosis without current pathological fracture from Last 3 Months or Most Recently Relevant to Health Maintenance Results * [facility] DEXA AXIAL SKELETON (05/07/2023 11:28 AM EDT) Anatomical Region Laterality Modality Mammography 05/07/2023 10:3 1 AM EDT Narrative 05/07/2023 11:28 AM EDT [facility] Diagnostic Imaging Department [address] [place] [address] Patient: ??LEATHA EDGAR ?/Age/Sex: 1955 - 68 - F Unit#: ??[id number] ? Location/Status: ??SPDIMAM/REG CLI ? Mnemonic/Ordering Site: ??MAMDEXAAX/SPMAM Ordering Physician: ??LIZANDRO SHANKAR PA-C Miguelito Dexa Axial Skeleton - 05/07/231118 Report Status:Signed HISTORY: ??The patient is a 68-year-old postmenopausal female with clinical concern for metabolic bone disease. FINDINGS: ??Dual energy x-ray absorptiometry of the lumbar spine and femurs is performed. The mean bone mineral density at L1-L4 is 0.872 gm/cm2 which is 74% of that of young normals and 91% of that of age matched controls. This yields a T-score of -2.6 and a Z-score of -0.7 which is diagnostic of osteoporosis. The mean bone mineral density of the femurs bilaterally is 0.593 gm/cm2 which is 59% of that of young normals and 72% of that of age matched controls. ??This yields a T-score of -3.3 and a Z-score of -1.9 which is diagnostic of osteoporosis. IMPRESSION: 1. Osteoporosis. 2. FRAX analysis yields a 10-year probability of major osteoporotic fracture of 31.1% and a 10-year probability of hip fracture of 9.8%. Code 80961 Dictating Physician: ??KESHA EPSTEIN MD Electronically Signed by: ??KESHA EPSTEIN MD Dic Date/Time: ??05/07/23 112 Sign date/Time: ??05/07/23 1128 Procedure Note Kesha Epstein MD - 09/23/2023 [facility] Diagnostic Imaging Department [address] [place] [address] Patient: LEATHA EDGAR /Age/Sex: 1955 - 68 - F Unit#: [id number] Location/Status: SPDIMAM/REG CLI Mnemonic/Ordering Site: MAMDEXAAX/SPMAM Ordering Physician: LIZANDRO SHANKAR PA-C [facility] Dexa Axial Skeleton - 05/07/23 - 1119 Report Status:Signed HISTORY: The patient is a 68-year-old postmenopausal female withclinical concern for metabolic bone disease. FINDINGS: Dual energy x-ray absorptiometry of the lumbar spine and femursis performed. The mean bone mineral density at L1-L4 is 0.872 gm/cm2 which is74% of that of young normals and 91% of that of age matched controls. Thisyields a T-score of -2.6 and a Z-score of -0.7 which is diagnostic ofosteoporosis. The mean bone mineral density of the femurs bilaterally is 0.593 gm/hr5lersd is 59% of that of young normals and 72% of that of age matched controls.This yields a T-score of -3.3 and a Z-score of -1.9 which is diagnostic of osteoporosis. IMPRESSION: 1. Osteoporosis. 2. FRAX analysis yields a 10-year probability of major osteoporoticfracture of 31.1% and a 10-year probability of hip fracture of 9.8%. Code 92565 Dictating Physician: KESHA EPSTEIN MD Electronically Signed by: KESHA EPSTEIN MD Dic Date/Time: 05/07/23 1127 Sign date/Time: 05/07/23 112 Lizandro HA G BI PROCEDURES Final Result from Last 3 Months or Most Recently Relevant to Health Maintenance Insurance [employer] - [place] MEDICARE ADVANTAGE Care Teams Insurance Licensing Supervisor Relationship Specialty Start Date End Date Lizandro Shankar PA [address] [place] [address] PCP - General 05/14/23
== END 2025-01-27 15:11 | disposition home or self-care (01) ==
LOC: HO.HSMS 14:19
PROVIDERS: PCP Physician Assistant; Visit Provider Nurse Practitioner Family
DX: E53.9 Vitamin B deficiency, unspecified (principal); G62.89 Other specified polyneuropathies; E53.8 Deficiency of other specified B group vitamins; R20.0 Anesthesia of skin; R20.2 Paresthesia of skin
CPT/HCPCS: 99214

== ENCOUNTER → 2025-01-27 14:19 | Outpatient (BNVA) | payer MEDICARE, SELFPAY | PROVIDERS: PCP Physician Assistant; Visit Provider Nurse Practitioner Family | DX: R20.2 Paresthesia of skin (principal); E53.8 Deficiency of other specified B group vitamins; E53.9 Vitamin B deficiency, unspecified; R20.0 Anesthesia of skin; G62.89 Other specified polyneuropathies | CPT/HCPCS: 99212 ==

== ENCOUNTER 2025-08-02 14:28 | Outpatient (AMB) | payer MEDICARE, SELFPAY ==
--- NOTE | 2025-08-02 14:37 | A.OFFVIS_ITS ---
Vital Signs 3 08/02/25 14:38 Height 5 ft 5 in Weight 98 lb BMI 16.3 BP 102/60 Blood Pressure Location Rt brachial Position Sitting Pulse 59 Pulse Source Pulse Oximeter Pulse Oximetry (%) 92 Oxygen Delivery Method Room Air Intake Visit Reasons: 6 mo follow up Intake Note: Patient here for a follow-up. Generation Manager Required: No Accompanied by: Self / Same As Patient Allergies No Known Allergies Allergy (Verified 08/02/25 14:38) Medication List - Last Reconciled 08/02/25 by TALA Woodard alendronate 70 mg PO QWEEK [Biotin 1,000 mg PO DAILY] calcium pantothenate 250 mg PO BID 90 days cholecalciferol (vitamin D3) 50 mcg PO DAILY gabapentin 200 mg (2 x 100 mg) PO BEDTIME 30 days niacin 50 mg PO BID 90 days pamidronate 30 mg IV DAILY pyridoxine (vitamin B6) 50 mg orally bid on Fri, Fri, Fri; 12 days Do you need a note to return to daycare/school/sports/work: No HPI Comments Details: 70-y/o female presents for follow-up of Placido hand and BLE nueropathy in the setting of osteoporosis, low back pain , lumbar spondylosis, spinal stenosis, h/o alcohol abuse (quit in 2020), opioid dependence (inhales 1-2 small doses of heroin per day- no h/o injections) comes for evaluation of neuropathy. She states the numbness and tingling in her hands and legs legs is stable, sometimes it will be a little bit more intense, such as a tingling pain. She denies any overt weakness. She continues to feel that gabapentin 200 mg at bedtime is helpful. She states she reduce her vitamin-B intake to Friday, Friday, and Friday, as her interval lab work showed elevated vitamin B6 level of 64, with a normal range of 5 to 50. 01/27/2025, HPI: Patient reports she is feeling better since the last visit, and starting gabapentin. Patient reports she is having less tingling sensation since starting gabapentin. Initially she started gabapentin 100 mg q.h.s. but that was not helpful, and increase to 200 mg q.h.s. which has been helpful. Her neuropathy symptoms include- BLE tingling and decreased sensation from her waist through her feet. Very occasionally will feel a more intense tingling pain. Bilateral hand tingling, not as prominent as in her legs. She feels like she is walking on something hard. Always wears shoes or a good tread so she does not fall. She can be off-balance when her eyes are closed, such as showering or changing clothes. She denies focal weakness but feels generally weaker. She is able to do her housework and care for her cats. Sometimes asks for help carrying her laundry basket down the stairs. She states she is compliant with her folic acid and vitamin C supplements. She does take an eye supplement twice a day for her macular degeneration. She states she is using the magnesium as needed She denies taking any zinc specific supplements. She does note that she does not eat very well overall. Interval labs, from [facility]: Previous workup: December 2022, BLE EMG/NCS showed bilateral moderately severe axonal sensory neuropathy. Laboratory Results from [facility] ? Latest Ref Rng & Units 04/26/2024 White Blood Cell Count 4.8 - 10.8 x10-3/uL 7.2 RBC 3.8 - 4.8 x10-6/uL 4.4 Hemoglobin 11.5 - 16.0 g/dL 12.3 Hematocrit 35 - 47 % 39.1 MCV 79 - 98 fL 89.9 MEAN CORPUSCULAR HEMOGLOBIN 27 - 32 pg 28.3 MCHC 32 - 37 g/dL 31.5(L) RED CELL DISTRIBUTION WIDTH 11 - 15 % 14.4 Platelet Count 130 - 400 x10-3/uL 304 MPV 7 - 11 fL 10.7 NRBC % AUTO <1 % 0.0 NEUTROPHILS % 63.8 LYMPHOCYTES % 25.8 MONO % % 6.2 EOSINOPHILS % 1.7 BASO % % 2.4 IMMATURE GRANULOCYTES % % 0.1 NRBC # AUTO <0.1 x10-3/uL 0.00 NEUT # 1.5 - 7.0 x10-3/uL 4.61 LYMPH # 1 - 5.0 x10-3/uL 1.86 MONO # 0.2 - 1.0 x10-3/uL 0.45 EOS # 0 - 0.5 x10-3/uL 0.12 BASO # 0 - 0.2 x10-3/uL 0.17 IMMATURE GRANULOCYTES # 0 - 0.03 x10-3/uL 0.01 GLUCOSE, PLASMA 70 - 100 mg/dL 100 Blood Urea Nitrogen 5 - 25 mg/dL 15 creatinine 0.5 - 1.1 mg/dL 0.89 GLOMERULAR FILTRATION RATE >60 71 NA (WB) 135 - 145 mEq/L 137 K 3.5 - 5.5 mmol/L 5.3 Chloride 96 - 110 mmol/L 102 CARBON DIOXIDE 21 - 32 mmol/L 32 ANION GAP 3 - 11 3 CALCIUM 8.5 - 10.5 mg/dL 9.6 PROTEIN, TOTAL 6.0 - 8.0 G/dL 7.3 Albumin 3.2 - 5.0 G/dL 4.0 Bilirubin, total 0.0 - 1.4 mg/dL 0.4 AST (SGOT) 10 - 42 U/L 17 ALT (SGPT) 10 - 60 U/L 17 Alk Phos 42 - 121 U/L 75 Cholesterol 0 - 200 mg/dL 236(H) HDL >40 mg/dL 92 TC-HDLC RATIO 0 - 4.4 mg/dL 2.6 TRIGLYCERIDES 0 - 150 mg/dL 109 LDL 0 - 100 mg/dL 123(H) IRON BINDING CAPACITY 250 - 450 ug/dL 357 IRON, TOTAL 40 - 150 ug/dL 67 % FE SATURATION 15 - 50 % 19 HbA1C <6.5 % 5.3 ESTIMATED AVERAGE GLUCOSE mg/dL 105 TSH 0.40 - 4.00 uIU/ml 1.78 VITAMIN D, 25-HYDROXY 30 - 80 ng/mL 38 MAGNESIUM 1.9 - 2.6 mg/dL 2.5 FERRITIN 8 - 252 ng/mL 109 VITAMIN B12 250 - 900 pg/mL 1073(H) RBC FOLATE 2.8 - 17.0 ng/ml > 20.0(H) LInitial HPI from 11/07/[address] Gavi Antunez: She reports numbness in toes that started in 2019 and has progressed to her thighs. It is persistent and has tingling in her feet and hands. She reports dry skin. In 2012 she also had skin rash in right LE and diagnosed with shingles. she had severe pain at that time when she was drinking heavily 1 year ago she had multiple falls . The falls stopped when she stopped drinking. she has chronic back pain, neck tightness, but denies shooting pains from back or neck. she has mild off balance . she is scared of falling.Her diet is poor due to poor appetite. [facility] Medical History Gait abnormality Numbness and tingling of both legs Shingles Myalgia Alcohol abuse Heroin addiction Spinal stenosis Lumbar spondylosis Low back pain Family History Father Afib Thyroid condition Brother Cancer Social History Alcohol intake: former Patient Tobacco Use Status: Never used Tobacco Physical Exam Vital Signs: Last Vital Signs Pulse 59 08/02/25 14:38 BP 102/60 08/02/25 14:38 Pulse Ox 92 08/02/25 14:38 Oxygen Delivery Method Room Air 08/02/25 14:38 BMI result Body Mass Index 16.3 Const General: cooperative and no acute distress Orientation/consciousness: patient oriented x3 Resp Effort & Inspection: normal respiratory effort and able to speak in complete sentences Neuro General: patient oriented x3 and deep tendon reflexes 2+ bilaterally Cranial nerves: Yes CN's II-XII intact bilaterally Cognition (Neuro): normal cognition Gait exam (Neuro): Normal gait present Motor exam (neuro): 5/5 motor strength present throughout Psych Appearance: grossly normal Mental Status: mental status grossly normal Speech and movement: Normal speech and movement present Affect: normal affect Attitude: cooperative Assessment & Plan Assessment & Plan (1) Axonal neuropathy: Comment: December 2022, BLE EMG/NCS showed bilateral moderately severe axonal sensory neuropathy. Code(s): G62.89 - Other specified polyneuropathies Category: Medical (2) Vitamin B deficiency, unspecified: Code(s): E53.9 - Vitamin B deficiency, unspecified Category: Medical (3) Folic acid deficiency: Code(s): E53.8 - Deficiency of other specified B group vitamins Category: Medical (4) Numbness and tingling of both legs: Code(s): R20.0 - Anesthesia of skin; R20.2 - Paresthesia of skin Category: Medical Plan For axonal sensory neuropathy in the setting of history of [id number] deficiencies and normal serum protein electrophoresis: * Continue calcium pantothenate 250 mg b.i.d., vitamin B6 50 mg b.i.d. 3 times per week, niacin 50 mg b.i.d. supplements. * Continue folic acid 1 mg q.day supplement. * May continue magnesium daily at bedtime as needed * Recheck nonfasting labs 1-2 weeks before follow-up visit Continue low-dose gabapentin 100 mg-200 mg q.h.s.- do not use with opioid use (patient uses this in the mornings). Previously discussed that if patient would like, we could help refer her to an opioid use disorder clinic, she will consider this. Pt to follow-up in 6 months or sooner prn. Medications: Changed 2 From gabapentin 100 - 300 mg (1 - 3 x 100 mg) PO BEDTIME 30 days 90 caps 6RF G62.89 - Other specified polyneuropathies To gabapentin 200 mg (2 x 100 mg) PO BEDTIME 60 caps 12RF 30 days G62.89 - Other specified polyneuropathies From pyridoxine (vitamin B6) 50 mg PO BID 90 days 180 tabs 1RF To pyridoxine (vitamin B6) 50 mg orally bid on Mon, Wed, Fri; 72 tabs 1RF 12 days Coding Level of Care Code Est Pt Level 3 (79256) Diagnoses Axonal neuropathy G62.89 Vitamin B deficiency, unspecified E53.9 Folic acid deficiency E53.8 Numbness and tingling of both legs R20.0; R20.2
[2025-08-02 14:38] VITALS: BP 102/60; PULSE 59; O2SAT 92; BMI 16.3
--- OUTSIDE RECORDS SUMMARY | 2025-08-02 18:46 | XMS_ITS | Clinical Summary ---
Author Organization [address] Address [address] [place] [address] Phone Care Team Providers Care Extrusion Utility Worker Name Role Phone Alondra Shankar Primary Care Provider + Allergies No known active allergies Medications alendronate (FOSAMAX) 70 mg tabletIndications :Age-related osteoporosis without current pathological fracture TAKE 1 TABLET BY MOUTH ONE TIME PER WEEK 12 tablet 1 05/30/2025 Active Active Problems Problem Noted Date Diagnosed Date Osteoporosis Overview (04/27/2025): DX:Osteoporosis Opiate dependence Overview (04/27/2025): DX:Opiate dependence (HCC) History of alcohol abuse Overview (04/27/2025): DX:History of alcohol abuse Encounters Date Type Department Care Team Description 06/28/2025 Results Follow-Up Internal Medicine - [place] [address] [place] [id number] Alondra Shankar PA 06/20/2025 1:52 PM EST - 06/20/2025 11:59 PM EST Hospital Encounter [facility] Bone Density [address] [place] [id number] Age-related osteoporosis without current pathological fracture Discharge Disposition: Home or Self Care from Last 3 Months Surgical History Surgery Date Site/Laterality Comments OTHER SURGICAL HISTORY PROCEDURE: [place] DRG LYMPH NODE ABSC/LYMPHADENITIS SMPL; COMMENT: left neck due to cat scratch fever age 15 HAND SURGERY Right PROCEDURE: HISTORICAL HAND SURGERY; COMMENT: right ring finger trauma s/p repair age 18 Medical History Medical History Date Comments Opiate dependence (CMS/HCC V24, CMS/HCC V28) DX:Opiate dependence (HCC) History of alcohol abuse DX:Hist ory of [...] on file Sexual Orientation Not on file Last Filed Vital Signs Vital Sign Reading Time Taken Comments Blood Pressure 110/79 04/27/2025 9:56 AM EDT Pulse 98 04/27/2025 9:56 AM EDT Temperature 37.1 C (98.8 F) 04/27/2025 9:56 AM EDT Respiratory Rate - - Oxygen Saturation 96% 04/27/2025 9:56 AM EDT Inhaled Oxygen Concentration - - Weight 45.8 kg (101 lb) 04/27/2025 9:56 AM EDT Height 165.1 cm (5' 5 ) 04/27/2025 9:56 AM EDT Body Mass Index 16.81 04/27/2025 9:56 AM EDT Plan of Treatment Upcoming Encounters Date Type Department Care Team (Late st Contact Info) Description 05/01/2026 2:30 PM EDT Office Visit Internal Medicine - [place] [address] [place] [address] Alondra Shankar PA [address] [facility] [place] [phone] Health Maintenance Due Date Last Done Comments Breast Cancer Screening 1955 Colorectal Cancer Screening: Colonoscopy 1955 Hepatitis A Vaccines (1 of 2 - Risk 2-dose series) 01/07/1976 Falls Risk Assessment 09/12/2023 Hepatitis C Screening 09/12/2023 Social Influencers of Health Screening 09/12/2023 Depression Screening 08/18/2024 COVID-19 Vaccine ( season) 2025 04/17/2024, 07/16/2023, 09/05/2021, Additional history exists Influenza Vaccine (#1) 2025 04/17/2024, 2022 Cholesterol Screening (Lipid Panel) 04/26/2029 04/26/2024 DTaP,Tdap,and Td Vaccines (2 - Td or Tdap) 07/30/2033 07/30/2023 Osteoporosis Screening (Bone Density Screening) 06/20/2035 06/20/2025, 05/07/2023 Pneumococcal Vaccine: 50+ Years Completed 02/14/2023 RSV Immunization Adult Patients Completed 07/16/2023 Zoster Vaccines Completed 11/05/2023, 02/17, 02/14/2023 HIB Vaccines Aged Out No longer eligi [...] Procedure Name Priority Date/Time Associated Diagnosis Comments BD BONE DENSITY DXA AXIAL SKELETON Routine 06/20/2025 2:16 PM EST Age-related osteoporosis without current pathological fracture from Last 3 Months Results * BD Bone Density DXA Axial Skeleton (06/20/2025 2:16 PM EST) Anatomical Region Laterality Modality Wrist, Hip, L-spine Bone Densito metry 06/27/2025 8:06 AM EST Impressions 06/27/2025 8:08 AM EST 1. Osteoporosis. There has been an increase of 17.9% in bone mineral density in the lumbar spine since the prior examination of 05/07/2023. There has been an increase of 2.9% in bone mineral density in the right femur and an increase of 4.8% in bone mineral density in the left femur. 2. FRAX analysis yields a 10-year probability of major osteoporotic fracture of 25.4% and a 10-year probability of hip fracture of 10.4%. Code 71671 -------- FINAL REPORT -------- Dictated By: Boyd Epstein Dictated Date: 06/27/2025 08:06 ET Assigned Physician: Boyd Epstein Reviewed and Electronically Signed By: Boyd Epstein Signed Date: 06/27/2025 08:08 ET Workstation ID: [id number] Transcribed By: Self Edit Transcribed Date: 06/27/2025 08:06 ET Narrative 06/27/2025 8:08 AM EST HISTORY: The patient is a 60-year-old postmenopausal female with clinical concern for metabolic bone disease. FINDINGS: Dual energy x-ray absorptiometry of the lumbar spine and femurs is performed. The mean bone mineral density at L1-L4 (with the exclusion of L2 and L3) is 0.944 gm/cm2 which is 81% of that of young normals and 108% of that of age matched controls. This yields a T-score of -1.8 and a Z-score of 0.6 which is diagnostic of osteopenia. The mean bone mineral density of the femurs bilaterally is 0.616 gm/cm2 which is 61% of that of young normals and 81% of that of age matched controls. This yields a T-score of -3.1 and a Z-score of -1.2 which is diagnostic of osteoporosis. The T-score of the right femoral neck is -3.2 and that of the left femoral neck is -3.1 which is diagnostic of osteoporosis. Procedure Note Boyd Epstein MD - 06/27/2025 HISTORY: The patient is a 60-year-old postmenopausal female with clinicalconcern for metabolic bone disease. FINDINGS: Dual energy x-ray absorptiometry of the lumbar spine and femursis performed. The mean bone mineral density at L1-L4 (with the exclusionof L2 and L3) is 0.944 gm/cm2 which is 81% of that of young normals [id number]% of that of age matched controls. This yields a T-score of -1.8 and aZ-score of 0.6 which is diagnostic of osteopenia. The mean bone mineral density of the femurs bilaterally is 0.616 gm/np1tahck is 61% of that of young normals and 81% of that of age matchedcontrols. This yields a T-score of -3.1 and a Z-score of -1.2 which isdiagnostic of osteoporosis. The T- score of the right femoral neck is -3.2and that of the left femoral neck is -3.1 which is diagnostic ofosteoporosis. IMPRESSION: 1. Osteoporosis. There has been an increase of 17.9% in bone mineraldensity in the lumbar spine since the prior examination of 05/07/2023.There has been an increase of 2.9% in bone mineral density in the rightfemur and an increase of 4.8% in bone mineral density in the left femur. 2. FRAX analysis yields a 10-year probability of major osteoporoticfracture of 25.4% and a 10-year probability of hip fracture of 10.4%. Code 01673 -------- FINAL REPORT -------- Dictated By: Boyd Epstein Dictated Date: 06/27/2025 08:06 ET Assigned Physician: Boyd Epstein Reviewed and Electronically Signed By: Boyd Epstein Signed Date: 06/27/2025 08:08 ET Workstation ID: [id number] Transcribed By: Self Edit Transcribed Date: 06/27/2025 08:06 ET Alondra HA IM DXA PROCEDURES Final Result from Last 3 Months Insurance [facility] Care Teams Extrusion Utility Worker Relationship Specialty Start Date End Date Alondra Shankar PA [address] [place] [address] PCP - General 05/14/23
== END 2025-08-02 15:17 | disposition home or self-care (01) ==
LOC: HO.HSMS 14:28
PROVIDERS: PCP Physician Assistant; Visit Provider Nurse Practitioner Family
DX: G62.89 Other specified polyneuropathies (principal); E53.9 Vitamin B deficiency, unspecified; E53.8 Deficiency of other specified B group vitamins; R20.0 Anesthesia of skin; R20.2 Paresthesia of skin
CPT/HCPCS: 99213

== ENCOUNTER → 2025-08-02 14:28 | Outpatient (BNVA) | payer MEDICARE, SELFPAY | PROVIDERS: PCP Physician Assistant; Visit Provider Nurse Practitioner Family | DX: G62.89 Other specified polyneuropathies (principal); M81.0 Age-related osteoporosis without current pathological fracture; M47.816 Spondylosis without myelopathy or radiculopathy, lumbar region; M48.061 Spinal stenosis, lumbar region without neurogenic claudication; E53.8 Deficiency of other specified B group vitamins; R20.0 Anesthesia of skin; R20.2 Paresthesia of skin | CPT/HCPCS: 99212 ==